=== PATIENT | male | born 2000 | race Two or more races ===

== ENCOUNTER 2025-02-06 05:18 | Emergency (ER) | payer OTHER ==
[~2025-02-06] VITALS: Ht 165.1 cm; Wt 63.6 kg
[2025-02-06 05:29] VITALS: BP 114/76; PULSE 62; RESP 16; TEMP 98.1; O2SAT 100
[2025-02-06] MEDS: PERTUSS(ACELL),DIPH,TET/PF 0.5 ML SYRINGE [ADULT] IM. ONE (07:35)
[2025-02-06] MEDS: IBUPROFEN 600 MG TABLET PO ONE (07:35)
[2025-02-06] MEDS: LIDOCAINE 1% 10 ML VIAL SQ ONE (07:36)
[2025-02-06] MEDS: BACITRACIN 0.9 GM PACKET OINTMENT TP ONE (07:36)
[2025-02-06] MEDS: ACETAMINOPHEN 500 MG TABLET PO ONE (07:36)
== END 2025-02-06 08:49 ==
LOC: EMS 05:21
DX: S01.81XA Laceration without foreign body of other part of head, initial encounter (principal); S90.01XA Contusion of right ankle, initial encounter; S60.221A Contusion of right hand, initial encounter; W06.XXXA Fall from bed, initial encounter; Y93.89 Activity, other specified; Y92.89 Other specified places as the place of occurrence of the external cause; Y99.8 Other external cause status
CPT/HCPCS: 99285; 70450; 73130; 73610; 90715; 90471; 12013; J3490